=== PATIENT | male | born 1985 | race American Indian/Alaskan Native ===

== ENCOUNTER 2017-11-21 10:02 | Emergency (ER) | payer MEDICAID, OTHER ==
[2017-11-21] MEDS ORDERED: Amoxicillin-Clav 500-125 mg Tab PO STA (10:24)
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
[2017-11-21 10:44] VITALS: RESP 18; O2SAT 98
[2017-11-21] MEDS ORDERED: Bacitracin 500 Units/gm Oint Foilpak UD ONE (11:33)
[2017-11-21 12:05] VITALS: BP 118/58; PULSE 76; TEMP 98.6
== END 2017-11-21 11:30 | disposition home or self-care (01) ==
LOC: ED 10:02
DX: S61.412A Laceration without foreign body of left hand, initial encounter (principal); W22.8XXA Striking against or struck by other objects, initial encounter; Y92.9 Unspecified place or not applicable